=== PATIENT | female | born 1950 | race African-American/Black ===

== ENCOUNTER 2016-04-19 14:14 | Emergency (ER) | payer OTHER, MEDICAID ==
--- NOTE | 2016-04-19 15:16 | ED Physician Documentation ---
General Adult - HISTORIAN Historian: patient - HPI Stated Complaint: Facial Swelling Chief Complaint: General Adult Onset: hours (2 hours) Timing: still present Severity: mild Context: No precipitating factor noted. Quality: swelling to the left facial area. Location: left face Further Comments: yes (Had similar episode in Nov, no precipitating factor found at that time. No known precipitating factors this time either.) - ROS CONST: no problems EYES/ENT: denies: problems with vision, sore throat CVS/RESP: none. denies: shortness of breath, cough GI/: none NEURO/PSYCH: denies: headache, fainting - PAST HX Past History: none Other History: none Surgeries/Procedures: none Allergies/Adverse Reactions: Allergies Allergy/AdvReac Type Severity Reaction Status Date / Time celecoxib [From Celebrex] AdvReac Unknown Rash Verified 04/19/16 14:20 diclofenac sodium AdvReac Unknown Rash Verified 04/19/16 14:20 [From Voltaren] nabumetone [From Relafen] AdvReac Unknown Rash Verified 04/19/16 14:20 rofecoxib [From Vioxx] AdvReac Unknown Rash Verified 04/19/16 14:20 - SOCIAL HX Smoking History: non-smoker Alcohol Use: none Drug Use: none - FAMILY HX Family History: No - VITAL SIGNS Vital Signs: Vital Signs Temp Pulse Resp BP Pulse Ox 97.1 F L 68 18 203/95 97 04/19/16 14:15 04/19/16 14:15 04/19/16 14:15 04/19/16 14:15 04/19/16 14:15 General Adult Physical Exam - PHYSICAL EXAM GENERAL APPEARANCE: mild distress EENT: eye inspection normal, ENT inspection normal NECK: normal inspection, thyroid normal, supple RESPIRATORY: no resp distress, chest non-tender, breath sounds normal. No: wheezes, rales, rhonchi CVS: reg rate & rhythm, heart sounds normal, equal pulses SKIN: warm/dry, other (sweeling to the left cheek, upper and lower lip to the midline. ) NEURO: oriented X3, mood/affect nml, cognition normal Discharge Clincal Impression: Facial swelling Referrals: Seth Malone MD [Primary Care Provider] - 2 Days Additional Instructions: Take some Benadryl or Claritin as needed to help with the swelling. If you start to developing any shortness of breath. Condition: Stable Disposition: HOME, SELF-CARE Decision to Admit: NO Date of Decison to Admit: 04/19/16 Decision Time: 15:20
[2016-04-19] MEDS ORDERED: methylPREDNISolone SOD SUCC 125 MG/2 ML VIAL IVP ONE (15:18)
[2016-04-19] MEDS ORDERED: methylPREDNISolone ACETATE 80 MG/ML VIAL IM ONE (15:28)
[2016-04-19 15:33] VITALS: BP 180/58
== END 2016-04-19 15:32 | disposition home or self-care (01) ==
LOC: ED 14:14
DX: R22.0 Localized swelling, mass and lump, head (principal)
CPT/HCPCS: 99282; J1040

== ENCOUNTER 2016-06-23 11:38 | Outpatient (CLI) | payer OTHER, MEDICAID ==
--- NOTE | 2016-06-23 14:23 | Diagnostic Imaging Report ---
[facility] [address] [facility].[address] [address] Report Submission Date: Jun 23, 2016 2:15:50 PM CDT Patient Study Name: MALINA RAO Date: Jun 23, 2016 11:43:46 AM CDT Modality Type: CR Gender: F Description: CHEST : 48 Institution: [facility] Physician RAHAT FARLEY - OP Chest -two views CLINICAL HISTORY: Follow-up pulmonary nodule. FINDINGS: Examination of the chest in PA and lateral views with no prior film for comparison demonstrates lungs to be free of coalescent infiltrate. There is no evident pulmonary nodule on this examination. Cardiac silhouette is within normal limits and the aorta is atherosclerotic and tortuous. Degenerative changes and scoliosis are present in the thoracic vertebrae. IMPRESSION: Thoracic scoliosis. Aortic atherosclerosis. No evident pulmonary nodule on the current examination. Recommend comparison with the patient's prior study. Electronically signed on Jun 23, 2016 2:15:50 PM CDT by: Jose LOPEZ
--- NOTE | 2016-06-23 17:21 | Diagnostic Imaging Report ---
[facility] [address] [facility].[address] [address] Report Submission Date: Jun 23, 2016 5:07:15 PM CDT Patient Study Name: MALINA RAO Date: Jun 23, 2016 11:54:46 AM CDT Modality Type: US Gender: F Description: US THYROID SOFT TISS HEAD/NCK : 48 Institution: [facility] Physician: RAHAT FARLEY - OP Ultrasound thyroid Clinical history thyroid nodule Technique: Ultrasound of the was performed of the thyroid gland with recording images Findings: The right lobe measures 4.9 x 2 x 2.5 cm. Left lobe measures 4.9 x 2.5 x 2.2 cm. In the right lobe of the thyroid gland there is a cystic nodule and measuring 3.2 x 2.2 x 2.4 cm. In the thyroid isthmus there is a nearly isoechoic nodule measuring 1.4 x 1.5 x 1.3 cm. New. The left lobe of the thyroid gland contains a 2.7 x 2.2 x 2.2 cm nodule with cystic spaces within the nodule the of the Impression: Bilateral large cystic nodules in both lobes of the thyroid gland Solid nodule in the right thyroid isthmus as described above Electronically signed on Jun 23, 2016 5:07:15 PM CDT by: Osmar LOPEZ
== END 2016-06-23 11:40 ==
LOC: RAD 11:38
PROVIDERS: ATTEND Family Medicine
DX: R91.1 Solitary pulmonary nodule (principal); E04.1 Nontoxic single thyroid nodule
CPT/HCPCS: 71020; 76536

== ENCOUNTER 2016-07-02 14:08 | Emergency (ER) | payer OTHER, MEDICAID ==
[2016-07-02] MEDS ORDERED: diphenhydrAMINE HCL 50 MG/ML VIAL IM ONE (14:28)
[2016-07-02] MEDS ORDERED: methylPREDNISolone ACETATE 80 MG/ML VIAL IM ONE (14:29)
--- NOTE | 2016-07-02 14:50 | ED Physician Documentation ---
General Adult - HISTORIAN Historian: patient - HPI Stated Complaint: face/lip swelling Chief Complaint: General Adult Further Comments: yes (66 year old female patient presents with right side facial edema and upper lip edema. Patient states she took 4 benadryl at 0600 and 1 benadrly around noon with no improvement. Patient has been seen in the Er twice for similar episodes. Both episodes occureed after patient was using cleaning products. Patient states symptoms have improved after antihistamines in the past. Today patient states she cleaned with rug with lysol and the floor with bleach last night.) - ROS CONST: no problems EYES/ENT: none CVS/RESP: none GI/: none MS/SKIN/LYMPH: none NEURO/PSYCH: denies: headache - PAST HX Past History: none Other History: none Surgeries/Procedures: none Allergies/Adverse Reactions: Allergies Allergy/AdvReac Type Severity Reaction Status Date / Time celecoxib [From Celebrex] AdvReac Unknown Rash Verified 07/02/16 14:27 diclofenac sodium AdvReac Unknown Rash Verified 07/02/16 14:27 [From Voltaren] nabumetone [From Relafen] AdvReac Unknown Rash Verified 07/02/16 14:27 rofecoxib [From Vioxx] AdvReac Unknown Rash Verified 07/02/16 14:27 Home Medications: Ambulatory Orders Medication Instructions Recorded Citalopram Hydrobromide [Celexa] 1 tab PO QDAY 07/02/16 Loratadine [Vicks Qlearquil 10 mg PO DAILY #30 tablet 07/02/16 Allergy] - SOCIAL HX Smoking History: non-smoker - FAMILY HX Family History: No - VITAL SIGNS Vital Signs: Vital Signs Temp Pulse Resp BP Pulse Ox 67 18 164/92 94 07/02/16 14:15 07/02/16 14:15 07/02/16 14:15 07/02/16 14:15 - REVIEWED ASSESSMENTS Nursing Assessment Reviewed: Yes Vitals Reviewed: Yes Progress - Progress Progress: Medicated with depomedrol 80 mg in the Er and benadryl 25mg IM Reviewed discharge instructions. Reviewed medication list. Reviewed symptoms to return to Er for. ED Results Lab/Radiology - Orders Orders: ED Orders Category Date Time Status diphenhydrAMINE HCL [Benadryl] Med 07/02/16 14:28 Once 25 mg IM NOW ONE methylPREDNISolone ACETATE [Depo-Medrol] Med 07/02/16 14:29 Once 80 mg IM NOW ONE General Adult Physical Exam - PHYSICAL EXAM GENERAL APPEARANCE: mild distress EENT: eye inspection normal, WINDY, other (Significant right facial edema and upper lip edema, no dental caries) CVS: reg rate & rhythm, heart sounds normal, equal pulses, no murmur, no gallop , PMI nml, no JVD, no friction rub, 24 ABDOMEN: soft, no organomegaly, normal bowel sounds, no abdominal bruit, no distension SKIN: normal color, warm/dry, NR, INT, PAL, DR EXTREMITIES: non-tender, normal range of motion, no evidence of injury, no edema , J, 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 NEURO: oriented X3, CN's nml as tested, motor nml, sensation nml, mood/affect nml Discharge Clincal Impression: Facial swelling Allergic contact dermatitis Qualifiers: Contact dermatitis trigger: unspecified trigger Qualified Code(s): L23.9 - Allergic contact dermatitis, unspecified cause Prescriptions: Loratadine [Vicks Qlearquil Allergy] 10 mg PO DAILY #30 tablet Referrals: Seth Malone MD [Primary Care Provider] - 2 Days Home Medications: Ambulatory Orders Citalopram Hydrobromide [Celexa] 1 tab PO QDAY 07/02/16 Loratadine [Vicks Qlearquil Allergy] 10 mg PO DAILY #30 tablet 07/02/16 Condition: Stable Disposition: 01 HOME, SELF-CARE Decision to Admit: NO Decision Time: 14:50
[2016-07-02 15:01] VITALS: BP 158/92
== END 2016-07-02 14:50 | disposition home or self-care (01) ==
LOC: ED 14:08
DX: L23.9 Allergic contact dermatitis, unspecified cause (principal)
CPT/HCPCS: J1040; J1200; 96372; 99283

== ENCOUNTER 2016-07-30 14:36 | Outpatient (CLI) | payer OTHER, MEDICAID ==
--- NOTE | 2016-07-31 10:34 | OP Clinic Progress Note ---
REASON FOR VISIT: This 66-year-old lady is seen with an enlarged thyroid. She was seen at a general health screening visit. There is no known family history of thyroid disease. She denies problems with swallowing. She denies problems with hoarseness. Some degree of swelling in the anterior aspect of her neck was more of an incidental finding found more by Dr. Malone by the patient's history. The patient felt that her neck was just somewhat fat and that was part of it. It is not tender also. A thyroid ultrasound was appropriately ordered. It does note generally cystic masses in the neck from about 1.5 cm to a little over 3 cm with several of these. Part of the body of the report states there is a cystic nodule in the right lobe and also states further down in the impression there is a solid nodule in the right thyroid isthmus. PLAN: I went over choices and options with the patient. I am not able to find any thyroid function tests and asked her to get some lab work to be drawn with a T3 , T4, TSH, thyroglobulin, and thyroid peroxidase test. She will also get a thyroid nuclear medicine scan and uptake. After these are done, I will review this. I also mentioned that in the more somewhat isoechoic or solid nodule in the right thyroid isthmus, it might be aspirated. If you are aspirating them, the cystic changes might be aspirated also, but this will be discussed with the patient after the above studies have been obtained. cc: Dr. Seth LOPEZ
== END 2016-07-30 14:37 ==
LOC: ENT 14:36
PROVIDERS: ATTEND Otolaryngology
DX: E04.9 Nontoxic goiter, unspecified (principal)
CPT/HCPCS: G0463

== ENCOUNTER 2016-07-31 14:59 | Outpatient (CLI) | payer OTHER, MEDICAID ==
[2016-08-01 04:35] LABS: THYROGLOBULIN 77.3 ng/mL (1.6-60.0)
== END 2016-07-31 15:00 ==
LOC: LAB 14:59
PROVIDERS: ATTEND Otolaryngology
DX: E04.2 Nontoxic multinodular goiter (principal)
CPT/HCPCS: 36415; 84432; 84439; 84443; 84481; 86376

== ENCOUNTER 2016-08-20 11:58 | Outpatient (CLI) | payer OTHER ==
--- NOTE | 2016-08-21 12:42 | OP Clinic Progress Note ---
REASON FOR VISIT: Alicia is seen in follow up for workup of her thyroid. She has a cold nodule on the right side and this was confirmed also with the thyroid nuclear medicine scan and also thyroid function tests including a peroxidase test, which helps to evaluate whether there is thyroiditis or not. All have come back in the normal range. These have been reviewed with Alicia. PLAN: I discussed with her the option of simply getting a repeat ultrasound regarding the cold nodule or having a fine-needle aspirate as guided by an ultrasound. She has opted to have the fine-needle aspirate guided by an ultrasound. I also explained to her 2 times to be sure she is clear that the aspirate gives a general ideal about the potential for malignancy and is not a certainty. In general, it is a high, medium, or low probability of being malignant and even these estimates are not always correct. She acknowledges that she understands this and but would like to have the fine-needle aspirate and arrangements are being made in that regard. cc: Dr. Seth LOPEZ
== END 2016-08-20 12:00 ==
LOC: ENT 11:58
PROVIDERS: ATTEND Otolaryngology
DX: E04.1 Nontoxic single thyroid nodule (principal)
CPT/HCPCS: G0463

== ENCOUNTER 2016-09-03 15:50 | Outpatient (CLI) | payer OTHER, MEDICAID ==
--- NOTE | 2016-09-04 09:20 | OP Clinic Progress Note ---
REASON FOR VISIT: Alicia is seen in follow up for an issue regarding her thyroid. She had nodules in the thyroid. The somewhat more suspicious one would be right sided, somewhat solid, and cold nodule. She has had fine-needle aspirate of that. I reviewed the pathology of that report with her being consistent with a benign follicular nodule. It does not have particular atypia cells. I also reviewed the general categories of implied risks of malignancy and recommendations and clinical management. This would be to have clinical follow up for it and the option of also having a repeat ultrasound. She brings up the concern regarding some of the other small nodules within the thyroid. PLAN: I again pointed out that it is somewhat recommended as a general guideline but not an absolute rule to have more clinical follow up. I offered having an ultrasound in 6 months to a year. Several times it is brought up and I have given her plenty of time as she appeared to be thinking. She wanted to know about having portions of the thyroid removed. She is very concerned regarding still the generally low possibility of them being malignant. I reviewed the pathology report and the general management protocol. It is not an absolute rule but acknowledged acceptable guidelines. The patient, again, has asked to be considered for surgery. I went over relative risks, problems, and complications, scar, infection, and vocal cord paralysis. I pointed out the vocal cord nerve, as the recurrent laryngeal nerve and calcium balance glands are being at risk, in addition to other surgical potential risks including infection, bleeding, airway blockage, scar, keloid formation, and she does have keloids in her neck. Patient asked again regarding surgery and I asked her to take some time. I asked her to come back in a month. I asked her to re-discuss these issues if she chose to with Dr. Malone or another surgeon for a different or additional opinion. The patient has chosen to come back in a month and review all these issues. cc: Dr. Seth LOPEZ
== END 2016-09-03 15:52 ==
LOC: ENT 15:50
PROVIDERS: ATTEND Otolaryngology
DX: E04.1 Nontoxic single thyroid nodule (principal)
CPT/HCPCS: G0463

== ENCOUNTER 2016-10-01 13:38 | Outpatient (CLI) | payer OTHER, MEDICAID ==
[2016-10-01 14:56] LABS: BASOPHILS % 0.3 (0.0-1.5); MEAN CORPUSCULAR HEMOGLOBIN 30.4 pg (28.0-34.0); MEAN CORPUSCULAR VOLUME 92.7 fl (80.0-100.0); MONOCYTES % 5.1 % (0.0-11.0); NEUTROPHILS # 5.2 # k/uL (1.4-7.7)
[2016-10-02 03:41] LABS: TOTAL PROTEIN 6.8 g/dL (6.0-8.5)
--- NOTE | 2016-10-07 11:44 | OP Clinic Progress Note ---
REASON FOR VISIT: This 66-year-old female has come in on her own accord to discuss her desire for possible thyroid surgery. At a prior meeting, I had gone over with her the prior fine-needle aspirate done fairly recently as being highly probable benign with a very low probability of being malignant. She has cystic nodules and more of a goitrous-type of picture. She had the solid nodule that was identified and she had the fine-needle aspirate ultrasound guided. I reviewed that with her again with the generally high probability of this being benign. She does have some dysphagia. She comes in today requesting to have surgery and have that removed. I went over what surgery is like and that I certainly would not recommend a total thyroidectomy for her condition. It would be possible to do a right thyroid lobectomy. Her thyroid palpably is multi-lobulated. I think it would be difficult to simply "take out the lump." There is a possibility it might present itself that way at the time of surgery but the higher probability would be that a right thyroid lobectomy would be needed to really effectively take out the nodule and associated disease. The complications I had gone over before and I reviewed with permanent problems with low calcium and hypocalcemia , parathyroid problems, permanent hoarseness, vocal cord paralysis and problems swallowing and talking. The patient does state that she remembers going over these issues and appreciates going over those issues again today. PLAN: I suggested waiting and repeat the fine-needle aspirate in about 6 months would be my choice. The patient impressed again considering having surgery. It was suggested that maybe additional information would be more reasonable as opposed to just having surgery currently. I have suggested an MRI with contrast to visualize the neck additionally. The patient is amenable to this at this point in time. cc: Dr. Seth LOPEZ
== END 2016-10-01 13:40 ==
LOC: ENT 13:38
PROVIDERS: ATTEND Otolaryngology
DX: E04.1 Nontoxic single thyroid nodule (principal); R13.10 Dysphagia, unspecified
CPT/HCPCS: 36415; 80053; 85025; G0463

== ENCOUNTER 2016-10-05 08:38 | Outpatient (CLI) | payer OTHER, MEDICAID ==
--- NOTE | 2016-10-06 17:48 | Diagnostic Imaging Report ---
[facility] [address] [facility] [place], [place]. [address] Report Submission Date: Oct 06, 2016 5:14:07 PM CDT Patient Study Name: MALINA RAO Date: Oct 05, 2016 9:22:01 AM CDT Modality Type: MR Gender: F Description: MRA NECK W&W/O CONTRAST : 48 Institution: [facility] Physician: ISSAC SUAREZ Magnetic resonance imaging of the neck without and with contrast History: Followup thyroid nodules Findings: Multiplanar magnetic resonance imaging of the neck performed without and with 15 mL intravenous omniscan. Comparison is made with the June 23, 2016 ultrasound exam. A predominantly cystic right thyroid nodule measures 2.3 x 2.7 x 3.4 cm without significant change. The left thyroid lobe is diffusely heterogeneous and likely contains multiple nodules. This is not the appropriate modality for followup of thyroid nodules. Moderately though convex thoracic scoliosis present. The parotid and submandibular glands are unremarkable. The normal-sized cervical lymph nodes are present. Impression: 1. Bilateral thyroid nodules as previously observed. This is not the appropriate modality for followup or characterization of thyroid nodules. This should be performed with sonography and ultrasound guided final aspiration biopsy if appropriate. 2. Thoracic scoliosis. Electronically signed on Oct 06, 2016 5:14:07 PM CDT by: Anthony LOPEZ
== END 2016-10-05 08:40 ==
LOC: RAD 08:38
PROVIDERS: ATTEND Otolaryngology
DX: E07.9 Disorder of thyroid, unspecified (principal)
CPT/HCPCS: 70543

== ENCOUNTER 2016-10-08 15:22 | Outpatient (CLI) | payer OTHER ==
--- NOTE | 2016-10-09 12:54 | OP Clinic Progress Note ---
REASON FOR VISIT: Alicia is seen in sequential follow up in evaluation of the thyroid. She has small cystic changes on her left thyroid and moderately large size right thyroid lobe nodule. The patient has considered wanting to have this excised with a right thyroid lobectomy that I have described at previous visits. I asked her to bring any additional family members along. My general impression would be to not have it operated on, but rather to have it followed up with an ultrasound or ultrasound guided fine-needle aspirates. The initial fine-needle aspirate has a very extremely high probability of being benign. It is not suspicious for being malignant and that information has been shared with the patient. Each time, the patient has expressed some interest in having to have surgery and have this cystic nodular portion of the thyroid removed with a right-sided thyroid lobectomy. Fortunately, she brought her daughter today. I reviewed the prior findings on her MRI of the neck and these findings were pointed out that there is no gross cervical lymphadenopathy. There is better delineation of the thyroid mass with the MRI. Again, reviewing all these issues with both the patient and with her daughter today, she was able to make the decision to wait and simply have an ultrasound in about 6 months, as a repeat study. She has a better understanding that with a thyroid lobectomy, although a small chance, there is some chance that she would need to be on Synthroid supplement ongoing in the future. She understands the general guidelines would be that the thyroid ultrasound in the future would be the better choice. She understands it is still not a guarantee that there would not be malignancy there. PLAN: The plan is to have a follow-up ultrasound in approximately 6 months. cc: Dr. Seth LOPEZ
== END 2016-10-08 15:23 ==
LOC: ENT 15:22
PROVIDERS: ATTEND Otolaryngology
DX: E04.1 Nontoxic single thyroid nodule (principal)
CPT/HCPCS: G0463

== ENCOUNTER 2016-10-10 13:18 | Outpatient (CLI) | payer OTHER | END 2016-10-10 13:20 | LOC: POD 13:18 | PROVIDERS: ATTEND Podiatrist | DX: B35.1 Tinea unguium (principal); M79.674 Pain in right toe(s); M79.675 Pain in left toe(s) | CPT/HCPCS: 11721; G0463 ==

== ENCOUNTER 2016-11-17 21:47 | Emergency (ER) | payer OTHER ==
--- NOTE | 2016-11-17 22:07 | ED Physician Documentation ---
Fall - HISTORIAN Historian: patient, paramedics - [facility] Chief Complaint: Fall Additional Information: tripped on curb fell w/pain lo back robin rt side Onset: today, hours (1500) Where: park Context: tripped, lost balance r: moderate Associated Symptoms:: no loss of consciousness Location of Pain/Injury: denies: head, neck, face, chest Injury to Right Extremity: none Injury to Left Extremity: none Further Comments: yes (dis abled dt djd) - ROS CONST: no problems NEURO: denies: dizziness, anxiety, depression MS/SKIN/LYMPH: back pain. denies: weakness, numbness, neck pain, ankle swelling , leg swelling CVS/RESP: none. denies: chest pain, shortness of breath - PAST HX Past History: other (htn djd) Allergies/Adverse Reactions: Allergies Allergy/AdvReac Type Severity Reaction Status Date / Time celecoxib [From Celebrex] AdvReac Unknown Rash Verified 11/17/16 21:57 diclofenac sodium AdvReac Unknown Rash Verified 11/17/16 21:57 [From Voltaren] nabumetone [From Relafen] AdvReac Unknown Rash Verified 11/17/16 21:57 rofecoxib [From Vioxx] AdvReac Unknown Rash Verified 11/17/16 21:57 - SOCIAL HX Smoking History: non-smoker Alcohol Use: occasionally Drug Use: none - FAMILY HX Family History: no significant history - VITAL SIGNS Vital Signs: Vital Signs Temp Pulse Resp BP Pulse Ox 158/92 07/02/16 14:50 - REVIEWED ASSESSMENTS Nursing Assessment Reviewed: Yes Vitals Reviewed: Yes ED Results Lab/Radiology - Radiology Radiology Impressions: xray low back no apparent new fracture-advanced djd - Orders Orders: ED Orders Category Date Time Status LUMBAR SPINE WITH OBLIQUES [L SPINE 4 VIEWS] [RAD] Stat Exams 11/17/16 Ordered Fall Physical Exam - Physical Exam General Appearance: moderate distress Head: non-tender, no swelling, no obvious injury Neck: non-tender, painless ROM Eye: WINDY, EOMI Resp/CVS: chest non-tender, no ecchymosis, breath sounds nml (has kelopid upper chest dt burn) Abdomen: soft, non-tender Neuro: oriented x3, CN's nml as tested, sensation nml Skin: color nml, no rash. No: cyanosis, diaphoresis, pallor Back: CVA tenderness (R), CVA tenderness (L) (lumbar pos slr approx 30 deg) Extremities: atraumatic Joint: No: joints nml, nml ROM - Viktoria Coma Score Eyes Open: Spontaneous Speech: Oriented Motor: Obeys Commands Discharge Referrals: Seth Malone MD [Primary Care Provider] - 2 Days
[2016-11-17 23:12] VITALS: BP 163/81
--- NOTE | 2016-11-18 06:42 | Diagnostic Imaging Report ---
ROSENDA GUIDRY [facility] [address] [facility] [address] [address] Report Submission Date: Nov 17, 2016 10:47:36 PM CDT Patient Study Name: MALINA RAO Date: Nov 17, 2016 10:11:09 PM CDT Modality Type: CR Gender: F Description: SPINE : 48 Institution: [facility] Physician: ROSENDA GUIDRY Lumbar spine - five views Clinical history: Fall. Lower right back pain. Findings: Complete examination lumbar spine including oblique and lateral coned -down views demonstrates degenerative anterolisthesis at L4-5 measuring 6 mm and L5-S1 measuring 6 mm. There is mild levoscoliosis with apex at T12-L1. The pedicles are intact and the paravertebral soft tissues are within normal limits. There is mild compression of the superior endplate of T12 that appears to be old. Degenerative facet changes are seen in the mid and lower lumbar vertebrae. Impression: 1. Spondylosis and levoscoliosis. 2. Degenerative anterolisthesis at L4-5 and L5-S1. 3. Compression fracture superior endplate of T12 that appears old. Electronically signed on Nov 17, 2016 10:47:36 PM CDT by: Jose LOPEZ
== END 2016-11-17 23:11 | disposition home or self-care (01) ==
LOC: ED 21:47
DX: M54.9 Dorsalgia, unspecified (principal); W19.XXXA Unspecified fall, initial encounter; Y93.9 Activity, unspecified; Y99.9 Unspecified external cause status
CPT/HCPCS: 72110; 99284

== ENCOUNTER 2017-01-06 11:26 | Outpatient (CLI) | payer OTHER ==
--- NOTE | 2017-01-06 14:38 | Diagnostic Imaging Report ---
REYNA FERMIN [facility] [address] [facility] [address] [address] Report Submission Date: Jan 06, 2017 11:54:09 AM CDT Patient Study Name: MALINA RAO Date: Jan 06, 2017 11:30:24 AM CDT Modality Type: CR Gender: F Description: CHEST : 48 Institution: [facility] Physician: REYNA FERMIN Examination: Plain film ribs History: Injury Findings: 3 views of the ribs normal cortical margins. No fracture or dislocation. Impression: No rib abnormality. Electronically signed on Jan 06, 2017 11:54:09 AM CDT by: Sushant LOPEZ
== END 2017-01-06 11:27 ==
LOC: RAD 11:26
PROVIDERS: ATTEND Physician Assistant
DX: R07.81 Pleurodynia (principal)
CPT/HCPCS: 71100

== ENCOUNTER 2017-01-23 15:20 | Outpatient (CLI) | payer OTHER | END 2017-01-23 15:30 | LOC: POD 15:20 | PROVIDERS: ATTEND Podiatrist | DX: B35.1 Tinea unguium (principal); M79.674 Pain in right toe(s); M79.675 Pain in left toe(s) | CPT/HCPCS: 11721; G0463 ==

== ENCOUNTER → 2017-03-06 | Outpatient (CLI) | payer OTHER ==
--- NOTE | 2017-03-06 15:11 | Diagnostic Imaging Report ---
ISSAC SUAREZ [facility] [address] [facility] [address] 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 Comparison exams: 23 June 2016 Findings: Right thyroid lobe measures 4.2 x 1.9 x 2.8 cm. Left thyroid lobe measures 5.1 x 2.4 x 2.4 cm. Diffuse inhomogeneous echogenicity bilaterally. Isthmus measures 8.7 mm. Within the mid aspect of the right thyroid lobe is a complex solid cystic nodule measuring 2.6 x 2.0 x 3.0 cm. Solid appearing nodule within the left thyroid lobe measuring 2.4 x 2.3 x 2.3 cm. Impression: Goiterous infiltration. Persistent solid and solid/cystic nodules bilaterally - not significantly changed in appearance since the May 2016 examination. Correlate with any biopsy results if obtained. Electronically signed on Mar 06, 2017 10:23:17 AM TEMPLATE CUTTER by: Sushant LOPEZ
== END ==
LOC: RAD 09:34
PROVIDERS: ATTEND Otolaryngology
DX: R22.1 Localized swelling, mass and lump, neck (principal)
CPT/HCPCS: 76536

== ENCOUNTER 2017-03-11 14:52 | Outpatient (CLI) | payer OTHER ==
--- NOTE | 2017-03-12 11:42 | OP Clinic Progress Note ---
REASON FOR VISIT: Alicia still had some concerns about her thyroid and had 1 additional evaluation. The ultrasound was repeated. She does have nodules on both sides and a general appearance of the thyroid being goitrous. I reviewed these findings with her in addition to the general conclusion that there is no significant change. She also had a fairly benign fine-needle aspirate cytology report. I reviewed these issues with her. She had given some thought to just wanting to have "it out." I pointed out if we took out both lobes of the thyroid when she has nodules on both sides that she would be thyroid medication- dependent the rest of her life. Also, there would be a low, but not zero probability, of there being malignancy. PLAN: Understanding her risks and options as best as I could explain to her, she acknowledged that she felt that she could understand it well. She opted to have a follow up ultrasound in about 10 months. I will try to make arrangements in that regard next fall. cc: Dr. Seth LOPEZ
== END 2017-03-11 15:00 ==
LOC: ENT 14:52
PROVIDERS: ATTEND Otolaryngology
DX: E04.9 Nontoxic goiter, unspecified (principal)
CPT/HCPCS: G0463

== ENCOUNTER 2017-03-14 17:33 | Emergency (ER) | payer OTHER ==
--- NOTE | 2017-03-14 17:47 | ED Physician Documentation ---
General Adult - HISTORIAN Historian: patient - HPI Stated Complaint: fall, L wrist pain Chief Complaint: General Adult Onset: minutes Timing: still present Severity: moderate Further Comments: yes (Pt is a 67 yo woman who tripped and fell and injured her L wrist.) - ROS CONST: no problems EYES/ENT: none CVS/RESP: none MS/SKIN/LYMPH: other (L wrist injury) - PAST HX Past History: other (Depression, GERD, HTN) Surgeries/Procedures: , other (ortho surgery) Allergies/Adverse Reactions: Allergies Allergy/AdvReac Type Severity Reaction Status Date / Time celecoxib [From Celebrex] AdvReac Unknown Rash Verified 03/14/17 17:42 diclofenac sodium AdvReac Unknown Rash Verified 03/14/17 17:42 [From Voltaren] nabumetone [From Relafen] AdvReac Unknown Rash Verified 03/14/17 17:42 rofecoxib [From Vioxx] AdvReac Unknown Rash Verified 03/14/17 17:42 - SOCIAL HX Smoking History: non-smoker Alcohol Use: heavy - FAMILY HX Family History: No - VITAL SIGNS Vital Signs: Vital Signs Temp Pulse Resp BP Pulse Ox 163/81 11/17/16 23:11 - REVIEWED ASSESSMENTS Nursing Assessment Reviewed: Yes Vitals Reviewed: Yes Progress - Progress Progress: Percocet (5/325) 2 tabs po x 1. x-ray L wrist: 3 views the wrist demonstrates diffuse osteopenia. Impaction fracture involving the distal radius with likely intra-articular extension. Comminuted fragments. Ulna is intact. Extensive carpal degenerative changes. d/w Dr. Hickey, [facility] splint Pt july/u Thursday. Ortho clinic to call pt. Rx Percocet (5/325) 1-2 po q 4-6 hrs prn # 15. plus 4 tabs-->home. D/c instructions: Rx Percocet (5/325). Take 1 or 2 every 4 to 6 hrs as needed for moderate to severe pain. [facility] with call you on Thursday to set up an appointment early in the week. If you do not hear from them by noon on Thursday, please call them at Tel. [phone]. General Adult Physical Exam - PHYSICAL EXAM GENERAL APPEARANCE: moderate distress NECK: normal inspection, supple RESPIRATORY: no resp distress, chest non-tender, breath sounds normal CVS: reg rate & rhythm, heart sounds normal BACK: normal inspection, no CVA tenderness SKIN: warm/dry, normal color EXTREMITIES: other (L wrist deformity) NEURO: oriented X3, motor nml Discharge Clincal Impression: Left wrist fracture Qualifiers: Encounter type: initial encounter Fracture type: closed Qualified Code(s): S62.102A - Fracture of unspecified carpal bone, left wrist, initial encounter for closed fracture Referrals: Seth Malone MD [Primary Care Provider] - Condition: Stable Decision to Admit: NO Decision Time: 19:12
[2017-03-14] MEDS ORDERED: oxyCODONE/ACETAMINOPHEN 5/325 TABLET PO ONE ×2 (17:54→19:08)
--- NOTE | 2017-03-14 19:13 | Diagnostic Imaging Report ---
GENARO MANTILLA [facility] [address] Formerly [facility], [facility]–[address] [address] Report Submission Date: Mar 14, 2017 6:47:08 PM LUMBER STICKER Patient Study Name: MALINA RAO Date: Mar 14, 2017 6:30:19 PM LUMBER STICKER Modality Type: CR Gender: F Description: UPPER EXTREMITY : 48 Institution: [facility] Physician: GENARO MANTILLA Examination: Plain film wrist History: Injury Comparison exams: None available Findings: 3 views the wrist demonstrates diffuse osteopenia. Impaction fracture involving the distal radius with likely intra-articular extension. Comminuted fragments. Ulna is intact. Extensive carpal degenerative changes. Impression: Impacted/comminuted distal radial fracture. Osteopenia and degenerative changes. Electronically signed on Mar 14, 2017 6:47:08 PM LUMBER STICKER by: Sushant LOPEZ
[2017-03-14 19:51] VITALS: BP 154/72
== END 2017-03-14 19:33 | disposition home or self-care (01) ==
LOC: ED 17:33
DX: S62.102A Fracture of unspecified carpal bone, left wrist, initial encounter for closed fracture (principal); W19.XXXA Unspecified fall, initial encounter; Y92.9 Unspecified place or not applicable; Y93.9 Activity, unspecified
CPT/HCPCS: 73130; 99283; A9270

== ENCOUNTER 2017-05-08 15:07 | Outpatient (CLI) | payer OTHER | END 2017-05-08 15:10 | LOC: POD 15:07 | PROVIDERS: ATTEND Podiatrist | DX: B35.1 Tinea unguium (principal); M79.674 Pain in right toe(s); M79.675 Pain in left toe(s) | CPT/HCPCS: 11721; G0463 ==

== ENCOUNTER 2017-07-20 14:42 | Outpatient (CLI) | payer OTHER ==
[2017-07-20 15:19] LABS: eGFR (Non-African) > 60
== END 2017-07-20 14:44 ==
LOC: LAB 14:42
PROVIDERS: ATTEND Family Medicine
DX: I10 Essential (primary) hypertension (principal); E78.00 Pure hypercholesterolemia, unspecified
CPT/HCPCS: 36415; 80048; 80061

== ENCOUNTER 2017-08-11 10:05 | Outpatient (CLI) | payer OTHER | END 2017-08-11 10:06 | LOC: CARD 10:05 | PROVIDERS: ATTEND Internal Medicine Cardiovascular Disease | DX: R07.9 Chest pain, unspecified (principal); I10 Essential (primary) hypertension; E78.00 Pure hypercholesterolemia, unspecified; E66.9 Obesity, unspecified | CPT/HCPCS: G0463 ==

== ENCOUNTER 2017-09-22 14:14 | Outpatient (CLI) | payer OTHER | END 2017-09-22 14:15 | LOC: CARD 14:14 | PROVIDERS: ATTEND Internal Medicine Cardiovascular Disease | DX: R07.9 Chest pain, unspecified (principal); I10 Essential (primary) hypertension; E78.5 Hyperlipidemia, unspecified; E66.9 Obesity, unspecified | CPT/HCPCS: G0463 ==

== ENCOUNTER 2017-10-09 15:15 | Outpatient (CLI) | payer OTHER | END 2017-10-09 15:20 | LOC: POD 15:15 | PROVIDERS: ATTEND Podiatrist | DX: B35.1 Tinea unguium (principal); M79.674 Pain in right toe(s); M79.675 Pain in left toe(s) | CPT/HCPCS: 11721; G0463 ==

== ENCOUNTER 2017-11-24 12:55 | Outpatient (CLI) | payer OTHER | END 2017-11-24 12:56 | LOC: CARD 12:55 | PROVIDERS: ATTEND Internal Medicine Cardiovascular Disease | DX: R07.9 Chest pain, unspecified (principal); I10 Essential (primary) hypertension; E78.5 Hyperlipidemia, unspecified; E66.9 Obesity, unspecified | CPT/HCPCS: G0463 ==

== ENCOUNTER 2017-12-14 16:13 | Outpatient (CLI) | payer MEDICAID, OTHER ==
[2017-12-14 18:20] LABS: eGFR (Non-African) > 60
[2017-12-14 23:41] LABS: BASO % 0.4 % (0.0-1.5); EOS % 6.2 % (0.0-6.8); LYMPH ABS # 1.52 thou/uL (0.60-4.00); MONOCYTE % 6.4 % (0.0-11.0); MONOCYTE ABS # 0.26 thou/uL (0.00-0.90); PLATELET COUNT 232 thou/uL (130-400)
== END 2017-12-14 16:20 ==
LOC: LAB 16:13
PROVIDERS: ATTEND Family Medicine
DX: E78.00 Pure hypercholesterolemia, unspecified (principal); I10 Essential (primary) hypertension
CPT/HCPCS: 36415; 80053; 80061; 85025

== ENCOUNTER 2017-12-24 14:18 | Outpatient (CLI) | payer OTHER | END 2017-12-24 14:20 | LOC: RAD 14:18 | PROVIDERS: ATTEND Otolaryngology | DX: R22.1 Localized swelling, mass and lump, neck (principal) | CPT/HCPCS: 76536 ==

== ENCOUNTER 2018-01-20 14:27 | Outpatient (CLI) | payer OTHER ==
--- NOTE | 2018-01-21 12:02 | OP Clinic Progress Note ---
REASON FOR VISIT: This 67-year-old female has been followed with cystic masses in her thyroid. She had a fine needle aspirate in August 2016 with no suspicious cells noted. She has had an ultrasound and estimated dimensions have altered some but there is not a gross increase in size. The patient adamantly refuses any additional fine needle aspirates of the thyroid. She feels like the neck symptoms have not changed. I do not feel there is a dramatic change in the size of the thyroid. I do not feel gross cervical lymphadenopathy. PLAN: Patient has chosen to have an ultrasound again in about 6 months and if things stay about the same, the interval between ultrasounds might be of a longer duration. cc: Dr. Seth LOPEZ
== END 2018-01-20 14:33 | disposition home or self-care (01) ==
LOC: ENT 14:27
PROVIDERS: ATTEND Otolaryngology
DX: E04.1 Nontoxic single thyroid nodule (principal)
CPT/HCPCS: G0463

== ENCOUNTER 2018-02-20 12:29 | Emergency (ER) | payer OTHER ==
[2018-02-20] MEDS ORDERED: ORPHENADRINE CITRATE 60 MG/2 ML ML IM ONE (13:12)
[2018-02-20] MEDS ORDERED: KETOROLAC TROMETHAMINE 60 MG/2 ML VIAL IM ONE (13:13)
--- NOTE | 2018-02-20 13:36 | ED Physician Documentation ---
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 Pt presents to the ED via POV c/o neck/upper back pain/ soreness x 2 weeks after sweeping snow off car. pt reports mild intermittent Right arm pain. movement increases the pain. Hot water in shower relieves the pain. pt has tried foster care case manager and icy hot for pain with mild improvement. Pt has an Rx for tramadol which she took this morning with partial relief. Pt reports her pharmacy is supposed to deliver tizanidine 4 mg today that was previously prescribed. pt denies current chest pain, dyspnea, syncope/near syncope, headache, dizziness, visual disturbances, n/v/d, fever/chills, rash, sick contacts, dysuria, trauma. melena or hematochezia, bleeding or easy bruising, change in bowel or bladder function. anxiety or depression. ROS Negative unless otherwise specified. - ROS NEURO/PSYCH: denies: difficulty with speech, anxiety, depression EYES/ENT: denies: sore throat CVS/RESP: denies: chest pain, shortness of breath, palpitations, cough CONST: denies: recent illness GI/: denies: nausea, vomiting, problems urinating - PAST HX Past History: arthritis Cardiac Risk Factors: hypertension, other (GERD DEPRESSION ARTHRITIS) Surgeries/Procedures: other (Left wrist. Bilateral Knees) Allergies/Adverse Reactions: Allergies Allergy/AdvReac Type Severity Reaction Status Date / Time celecoxib [From Celebrex] AdvReac Unknown Rash Verified 02/20/18 12:49 diclofenac sodium AdvReac Unknown Rash Verified 02/20/18 12:49 [From Voltaren] nabumetone [From Relafen] AdvReac Unknown Rash Verified 02/20/18 12:49 rofecoxib [From Vioxx] AdvReac Unknown Rash Verified 02/20/18 12:49 - SOCIAL HX Smoking History: non-smoker Alcohol Use: occasionally Drug Use: none - FAMILY HX Family History: none - VITAL SIGNS Vital Signs: Vital Signs Temp Pulse Resp BP Pulse Ox 98.1 F 66 14 126/82 97 02/20/18 12:30 02/20/18 12:30 02/20/18 12:30 02/20/18 12:30 02/20/18 12:30 - REVIEWED ASSESSMENT Nursing Assessment Reviewed: Yes Vitals Reviewed: Yes Progress - Progress Progress: Report Submission Date: Feb 20, 2018 2:15:32 PM DIRECTOR SOCIAL WELFARE Patient Study Name: MALINA RAO Date: Feb 20, 2018 1:30:07 PM DIRECTOR SOCIAL WELFARE Modality Type: DX Gender: F Description: SPINE : 48 Institution: [facility] Physician: [place] NICHOLS Three-view cervical spine Clinical history: Pain that is worse with movement for 1 week. Findings: Examination of the cervical spine in AP, lateral and open-mouth views demonstrates the vertebrae to be anatomically aligned. C5-6 and C6-7 disc spaces are narrowed with osteophyte formation consistent with degenerative disc disease. Prevertebral soft tissues are within normal limits. The C1-2 articulation is normal ndt the base of the odontoid is intact. Impression: 1. Spondylosis. 2. No fracture. Electronically signed on Feb 20, 2018 2:15:32 PM DIRECTOR SOCIAL WELFARE by: Jose Glaser [id number] pt reports pain improved after toradol and norflex. awaiting lab results. - EKG/XRAY/CT EKG: NSR (Rate 60QRS prime), RBBB, no ST T wave changes, unchanged from ([id number]) ED Results Lab/Radiology - Lab Results Lab Results: Lab Results 02/20/18 02/20/18 02/20/18 14:08 14:08 14:08 WBC 6.50 K/ul K/ul (4.00-12.00) RBC 4.24 M/ul M/ul (3.90-5.20) Hgb 12.7 g/dL g/dL (12.0-16.0) Hct 37.3 % % (34.5-46.5) MCV 88.0 fl fl (80.0-100.0) MCH 29.8 pg pg (28.0-34.0) MCHC 33.9 g/dL g/dL (30.0-36.0) RDW 12.2 % % (11.3-14.3) Plt Count 206 K/mm3 K/mm3 (130-400) Neut % (Auto) 66.0 % % (39.0-79.0) Lymph % (Auto) 22.3 % % (16.0-50.0) [place] % (Auto) 9.0 % % (0.0-11.0) Eos % (Auto) 2.3 % % (0.0-6.8) Baso % (Auto) 0.4 (0.0-1.5) Neut # (Auto) 4.3 # k/uL # k/uL (1.4-7.7) Lymph # (Auto) 1.5 # k/uL # k/uL (0.6-4.0) [place] # (Auto) 0.6 # k/uL # k/uL (0.0-0.9) Eos # (Auto) 0.2 # k/uL # k/uL (0.0-0.6) Baso # (Auto) 0.0 # k/uL # k/uL (0.0-0.5) Sodium 137 mmol/L mmol/L (136-145) Potassium 3.7 mmol/L mmol/L (3.5-5.1) Chloride 94 mmol/L L mmol/L (98-107) Carbon Dioxide 32 mmol/L H mmol/L (22-30) BUN 12 mg/dL mg/dL (7-17) Creatinine 0.60 mg/dL mg/dL (0.52-1.04) Estimated Creat Clear 137 Est GFR ( Amer) > 60 (60 - ) Est GFR (Non-Af Amer) > 60 (60 - ) Glucose 93 mg/dL mg/dL (74-106) Calcium 8.8 mg/dL mg/dL (8.4-10.2) Total Bilirubin 0.7 mg/dL mg/dL (0.2-1.3) AST 17 U/L U/L (15-46) ALT 27 U/L U/L (13-69) Alkaline Phosphatase 145 U/L H U/L (38-126) Troponin I 0.00 ng/mL L ng/mL (0.03-0.06) Total Protein 7.2 g/dL g/dL (6.3-8.2) Albumin 3.7 g/dL g/dL (3.5-5.0) - Orders Orders: ED Orders Category Date Time Status CERVICAL SPINE STANDARD VIEWS [C SPINE 2 OR 3 VIEWS] [ Exams 02/20/18 Completed RAD] Stat CBC/PLATELET/DIFF Stat Lab 02/20/18 14:08 Completed CMP Stat Lab 02/20/18 14:08 Completed TROPONIN I (cTnI) Stat Lab 02/20/18 14:08 Completed Ketorolac Tromethamine [Toradol] Med 02/20/18 13:13 Discontinued 60 mg IM NOW ONE Orphenadrine Citrate [Norflex] Med 02/20/18 13:12 Discontinued 60 mg IM NOW ONE EKG WITH COMPARISON Stat Ther 02/20/18 Ordered Neck Injury/Pain - Physical Exam General Appearance: no acute distress, alert EENT: nml ENT inspection, pharynx nml Neck: muscle spasm, other (vertebral column non tender. ) Nexus Criteria: Nexus criteria neg Back: muscle spasm (upper back) Respiratory: chest non-tender, breath sounds nml CVS: heart sounds nml, bilateral pulses nml Abdomen: non-tender, no organomegaly, nml bowel sounds, no distention Skin: warm/dry Extremities: non-tender Neuro/Psych: oriented x3, sensation nml, motor nml, mood/affect nml, ball warper tender nml Discharge Clincal Impression: Neck pain DJD (degenerative joint disease) of cervical spine Qualifiers: Spinal osteoarthritis complication: unspecified spinal osteoarthritis Qualified Code(s): M47.812 - Spondylosis without myelopathy or radiculopathy, cervical region Referrals: Seth Malone MD [Primary Care Provider] - 2 Days Additional Instructions: Use warm moist heat packs for 20 min intervals taking care not to burn skin. Follow up with primary care in 2 weeks if not improving as expected. Take your home tramadol and tizanidine for the pain. seek medical care immediately if difficult to wake, difficulty breathing, feeling faint or fainting, increased rash, chest pain, shortness of breath, fever not controlled by tylenol/motrin, or any concerns. PLEASE UNDERSTAND THAT THIS IS AN EMERGENCY EVALUATION FOR YOUR COMPLAINT AND BY NATURE IS LIMITED AND NOT A SUBSTITUTE FOR ONGOING MEDICAL CARE. EVEN THOUGH TEST RESULTS AND TREATMENT PLAN WERE EXPLAINED THERE MAY BE A NEED FOR ADDITIONAL TESTING TO FULLY DETERMINE THE EXTENT OF YOUR ILLNESS/INJURY/OR CONCERN SO YOU SHOULD CONTACT AND OR ESTABLISH WITH A PRIMARY CARE PROVIDER (OR REFERRAL DOCTOR IF APPLICABLE) FOR AN APPOINTMENT SOON POSSIBLE. Condition: Good Disposition: 01 HOME, SELF-CARE Decision to Admit: NO Date of Febison to Admit: 02/20/18 Decision Time: 14:40
[2018-02-20 14:25] LABS: BASOPHILS % 0.4 (0.0-1.5); EOSINOPHILS % 2.3 % (0.0-6.8); MEAN CORPUSCULAR HEMOGLOBIN 29.8 pg (28.0-34.0); NEUTROPHILS # 4.3 # k/uL (1.4-7.7)
--- NOTE | 2018-02-20 14:35 | Diagnostic Imaging Report ---
[place] NICHOLS [facility] [id number] [facility].[address] 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 Findings: Examination of the cervical spine in AP, lateral and open-mouth views demonstrates the vertebrae to be anatomically aligned. C5-6 and C6-7 disc spaces are narrowed with osteophyte formation consistent with degenerative disc disease. Prevertebral soft tissues are within normal limits. The C1-2 articulation is normal ndt the base of the odontoid is intact. Impression: 1. Spondylosis. 2. No fracture. Electronically signed on Feb 20, 2018 2:15:32 PM WHEEL LOADER OPERATOR by: Jose LOPEZ
[2018-02-20 14:45] LABS: eGFR (Non-African) > 60
[2018-02-20 17:22] VITALS: BP 122/78
== END 2018-02-20 14:55 | disposition home or self-care (01) ==
LOC: ED 12:29
DX: M54.2 Cervicalgia (principal); M47.812 Spondylosis without myelopathy or radiculopathy, cervical region
CPT/HCPCS: 36415; 72040; 80053; 84484; 85025; 93005; 96372; 99283; 99284; J1885; J2360

== ENCOUNTER 2018-11-10 13:14 | Outpatient (CLI) | payer OTHER ==
[2018-10-30 22:21] VITALS: BP 128/71
[~2018-11-10 13:14] MED LIST: BUPIVACAINE HCL 0.25% (2.5MG/ML) PF 10ML VIAL IV ONE; Lidocaine 1% 5ml 10 MG/ML VIAL ONE; methylPREDNISolone ACETATE 40 MG/ML VIAL IM ONE
--- NOTE | 2018-11-16 15:52 | CONSULTATION REPORT ---
DRAFT CHIEF COMPLAINT: Right shoulder pain. HISTORY OF PRESENT ILLNESS: This 68-year-old black female is seen today for recommendations regarding painful right shoulder, per request of Dr. Malone. The patient indicates she has had trouble with the right shoulder for around five years. She does indicate there was no injury event that started the pain. She does report onset has been gradual, pain is intermittent. She describes the pain as aching, mild to severe, comes and goes. She rates her pain at rest at 7/10, pain with activity is 5/10. Pain has progressed with activities of daily living. She does have night pain which wakes her up at night. Shoulder pain is worse with attempts at lifting, repetitive activity and weight lifting. She is right-hand dominant. She has tried using ice, nonsteroidal medications as well as TENS unit and [place]. She currently is not taking [place], taking tramadol that she received from Dr. Malone. She has also been taking Tylenol, which helps some. She has tried glucosamine as well as muscle relaxers, chiropractic acupuncture and physical therapy. She did physical therapy three months ago for two to three times a week for multiple weeks. She says it helped just a little, but not a lot. She does note some weakness in right shoulder/upper extremity. She also observes stiffness, swelling, crepitus. She does report some intermittent neck pain which radiates to her arm. X-RAYS: She has had plain film x-rays which are reviewed and these are noted to reveal good alignment of glenohumeral articular surfaces. There is some superior subluxation/narrowing appreciated at the humeroacromial space with some degenerative changes suggested at both AC joint and at the glenohumeral joint. There remains, however, a small to moderate joint space present at the glenohumeral articulation. No acute fractures or other abnormalities are observed. PAST MEDICAL HISTORY: The patient does report past medical history positive for deep venous thrombosis involving one of the right pelvic veins. She also reports history of a thyroid mass which she says was observed with ultrasound, assessed from time to time. She reports hypertension was diagnosed in 1977. She uses a cane to mobilize. PAST SURGICAL HISTORY: The patient indicates history of previous knee replacements on both sides, performed in [place] in the past, followed by Dr. Jf Roth there. Her surgical history is also positive for section 1977, left knee arthroscopic procedure [address] Steen in [place], left knee replacement in [address] Jf Roth, right knee replacement in [address] Jf Roth, and left wrist plate and screw was performed in February 2017 by an unknown [place] orthopedic doctor, followed up with Dr. Portillo pro in [place] following injury. ALLERGIES: The patient also reports that she has allergies to Celebrex, which causes hives. MEDICATIONS: She lists her current medications to include loratadine, omeprazole, fluticasone nasally, losartan, potassium, amlodipine, lovastatin, metoprolol, citalopram, tramadol 50 mg four times daily, cyclobenzaprine 10 mg three times daily, hydrochlorothiazide, ibuprofen, acetaminophen. SOCIAL HISTORY: Negative for cigarette use, positive for occasional alcohol beverage, not on a regular basis, however. The patient is single and reports she is retired, has had four pregnancies, four live births and one miscarriage. FAMILY HISTORY: Positive for asthma in Dad, an aunt and an uncle. Hypertension in mother, an aunt and an uncle. Obesity in mother. REVIEW OF SYSTEMS: The patient has review of systems which is positive for rashes, hoarseness, corrective lenses, chest pain sometimes with activity, shortness of breath, two-pillow orthopnea, chest pain with activity sometimes, leg swelling, shortness of breath with activity. She reports she cannot walk two blocks without shortness of breath. She reports having undergone a heart workup seven years ago with an echocardiogram and stress test two years ago, does not have results of those studies. She does report heartburn and constipation. Respiratory is negative for chronic cough, wheezing, coughing up blood, history of pneumonia. Genitourinary is negative for difficult urination, painful urination, blood in the urine or frequent urination or urgency or kidney stones. Psychiatric negative for suicidal thoughts or attempts. Negative for panic attacks, negative for bipolar, negative for schizophrenia. Neurologic is positive for anxiety/depression. Positive for dizziness. Positive for right side weakness in the shoulder area. The patient reports she is borderline hypercholesterol positive. She reports negative diabetes. PHYSICAL EXAMINATION: Vital signs are recorded revealing temperature of 97.7 degrees, blood pressure of 142/75, pulse of 67, respiratory rate of 18, height 5 feet 3 inches reported by patient, weight of 202 pounds with calculated BMI of 35.78. HEENT is normocephalic. Lungs are clear to percussion bilaterally. Cardiac: Regular rate and rhythm. Abdomen: Soft, nontender and obese. Extremity exam: The patient has limited active and passive range of motion of right shoulder. She actively can abduct to about 90 degrees at best, that with a little effort. Passively she gets to about 110 degrees. There is crepitus range of motion right shoulder. There is tenderness on the anterior and superior aspects of her right shoulder. She also reports some pain posteriorly. The patient has no gross instability appreciated of right shoulder. She can forward flex approximately 90 degrees with a little effort actively. Passively goes about 10 degrees further. The patient has internal rotation on the unaffected left upper extremity such as to reach the lower lumbar region on the right. She is unable to reach past the posterior aspect of her ilium at best. She does not reach even the sacral area using right shoulder. She has limited adduction, unable to adduct past midline on the right. There is good capillary refill distally both upper extremities with pulses present and symmetric radial aspect of wrist. IMPRESSION: 1. Degenerative joint disease of right shoulder with probable longstanding rotator cuff arthropathy. 2. History of deep venous thrombosis right pelvic region, not currently on anticoagulants. The patient reports the DVT was several years back and she has not been thought to require anticoagulants currently. 3. Hypertension. 4. Patient requiring tramadol currently per her notes. I note, however, that ER documentation indicates that this is Toradol rather than tramadol. She insists that she takes tramadol four times daily. 5. Intermittent chest pain with impaired mobility, unable to walk two blocks without shortness of breath and positive lower extremity swelling. 6. Borderline hypercholesterolemia reported. 7. The patient does report allergy to Celebrex which causes hives. RECOMMENDATIONS: Options are discussed with the patient. I sterilely injected the right glenohumeral joint with Depo-Medrol/Xylocaine/Marcaine. I did discuss with the patient that she likely will note some improvement. I did recommend weight reduction efforts for her and advised her that she certainly may be someone who would want to consider option of a reverse shoulder arthroplasty if nonsurgical options do not allow for improvement and she is able to obtain medical/cardiac clearance as appropriate for surgery. I did advise that reverse shoulder arthroplasty is a procedure which likely would alleviate discomfort, but likely would not allow her much if any improvement in function, given her limited current function with that shoulder anyway. We had a good discussion about that. At this point, we will see her back in three months for reassessment and she is going to continue with the current nonsurgical measures including the ibuprofen and tramadol. She insists she is not taking Toradol and I recommend she not take Toradol with ibuprofen in any event. Thank you for the opportunity to visit with this patient and help her with her painful shoulder. PROCEDURE NOTE: I sterilely injected the right glenohumeral joint using a 22- gauge needle with 40 mg of Depo-Medrol, 4 mL of 1% plain Xylocaine and 4 mL of 0.25% plain Marcaine. Anterior injection site was utilized. The patient tolerated the procedure well with no complications. Jung Montgomery MD (Dictated/not signed) /[employer] [id number] Job #[id number] [id number]
== END 2018-11-10 13:45 ==
LOC: ORHTO 13:14
PROVIDERS: ATTEND Orthopaedic Surgery
DX: M19.011 Primary osteoarthritis, right shoulder (principal); I10 Essential (primary) hypertension; R07.9 Chest pain, unspecified; R26.89 Other abnormalities of gait and mobility; R22.42 Localized swelling, mass and lump, left lower limb; Z86.718 Personal history of other venous thrombosis and embolism
CPT/HCPCS: 20610; 99203; J1030; J3490

== ENCOUNTER 2019-02-09 13:09 | Outpatient (CLI) | payer OTHER ==
[2018-10-30 22:21] VITALS: BP 128/71
--- NOTE | 2019-02-14 14:39 | OP Clinic Progress Note ---
PROGRESS NOTE: The patient is a 68-year-old black female who was seen for recheck today. She indicates that she has gotten some improvement from the glenohumeral joint injection, but it is not substantial at this point. She does have continuing symptoms, as outlined in her index assessment, orthopedic, by myself on 11/10/2018. Please reference that consultation report. PHYSICAL EXAMINATION: Physical exam today continues to reveal limited active and passive range of motion of the right shoulder, actively able to abduct to about 90 degrees at best that with a little effort, passively to about 110 degrees. There is crepitus on range of motion of the right shoulder with tenderness along the anterior and superior aspects of that right shoulder. She also reports some pain posteriorly. There is no gross instability appreciated right shoulder. The patient does have forward flexion to approximately 90 degrees with a little effort actively, passively goes about 10 degrees further. She has internal rotation on the unaffected left upper extremity such as to reach the lower lumbar region. On the right she is unable to reach past the posterior aspect of her ilium. She has limited adduction on the right, unable to adduct past midline on the right. There is good capillary refill distally both upper extremities with pulses present and symmetric at radial aspect of wrists. RECOMMENDATIONS: We had an extensive discussion about options at this point. She does want to undergo a reverse shoulder arthroplasty on the right if she is able to obtain medical/cardiac/anesthesia clearance for that procedure. I did advise her that the procedure is associated with various pros and cons and alternatives to treatment are discussed as well, including both surgical and nonsurgical options. I answered all of her questions to her voiced satisfaction. She is advised that complications include, but are not limited to, , amputation, life and/or limb threatening blood clots, myocardial infarction, stroke, infection on one or more occasions, need for removal or replacement of components, need for additional surgical procedures, failure to relieve pain, worse pain, worse debilitation, nerve damage, worse functional usage than was noted preoperatively. I also advised her that loosening of the components, fracturing around the components (periprosthetic fractures) can occur in some individuals. I advised her that my expectation is that she would have improvement in the level of discomfort she currently experiences in that right shoulder, but she is advised that absolutely no guarantees whatsoever have been, are, or can be provided regarding results of any type. She is advised that dislocation of the components can occur, as can loosening of components. She is advised that she is not going to have weightbearing through that upper extremity recommended after shoulder replacement as it is often poorly tolerated. Specifically, I advised her that she is not to expect any improvement in range of motion following surgery versus what she currently has, and that some individuals feel that they get pretty good pain relief, not great, but do not get much, if any, functional improvement and sometimes are worse in that parameter of assessment. She seems to have a very good understanding of what expectations can be, did advise her that shoulders do not generally work quite as well as knee replacements; as she has some experience with knee replacements, she related to what expectations are, reporting that the left knee hurts a little more than the right, even still after replacement. She, of course, does need to get general medical clearance which we will leave to Dr. Malone, her primary care provider, and also needs to get cardiology clearance given her history of cardiac issues, intermittent chest pain with impaired mobility and inability to walk two blocks without shortness of breath and presence of lower extremity swelling. She does have hypertension as well as history of deep venous thrombosis right pelvic region, not currently on anticoagulants. She is advised as well that her current BMI in the mid-30s does put her at elevated risk of readmission and complications approximately doubling that of an individual without a BMI in the mid-30s, but rather in the 18.5 to 30-range. She acknowledges. Order is placed for right reverse shoulder arthroplasty, pending general medical, cardiac, and anesthesia clearances. The patient acknowledges that actually performing the surgery does depend on clearances and availability of appropriate facility for the procedure with appropriate available specialty care, if indicated. Jung Montgomery MD/[employer] [id number] Job #[id number] cc: Seth Malone M.D. JESSICA
== END 2019-02-09 13:35 ==
LOC: ORHTO 13:09
PROVIDERS: ATTEND Orthopaedic Surgery
DX: Z00.00 Encounter for general adult medical examination without abnormal findings (principal)
CPT/HCPCS: 99212; G0463

== ENCOUNTER 2019-02-18 16:23 | Outpatient (CLI) | payer OTHER ==
[2018-10-30 22:21] VITALS: BP 128/71
[2019-02-18 17:08] LABS: HDL 47 mg/dL (>40); eGFR (Non-African) > 60
== END 2019-02-18 16:28 ==
LOC: LABRHC 16:23
PROVIDERS: ATTEND Family Medicine
DX: I10 Essential (primary) hypertension (principal); E78.00 Pure hypercholesterolemia, unspecified
CPT/HCPCS: 80053; 80061; 85027

== ENCOUNTER 2019-03-01 15:23 | Outpatient (CLI) | payer OTHER ==
[2018-10-30 22:21] VITALS: BP 128/71
--- NOTE | 2019-03-02 08:59 | Diagnostic Imaging Report ---
PATIENT MR#: [id number] PATIENT PATIENT NAME: MALINA RAO DATE OF : 1950 REFERRING PHYSICIAN: Naz Beltre EXAM DATE: 03/01/2019 ACCESSION NUMBER: [id number] EXAM DESCRIPTION: WRIST 3 VIEWS OR MORE CLINICAL HISTORY: RIGHT WRIST PAIN AND SWELLING COMPARISON: No study for comparison is available at the time of interpretation. TECHNIQUE: DX right wrist, 3 views Osseous structures: The osseous structures are normal with no evidence of fracture or dislocation. Th ere is no osseous lesion or periosteal reaction. 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 Soft tissues: There is a calcification of the triangular fibrocartilage. IMPRESSION: 1. 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 The intercarpal articulations may be better assessed with CT or MRI. 2. Degenerative calcification of the triangular fibrocartilage. Read by: Dr. Alireza Berry Transcribed by: Alireza Berry Transcribed Date: 03/02/2019 8:59:12 AM Electronically signed by: Dr. Alireza Berry Date signed: 03/02/2019 8:59:12 AM
== END 2019-03-01 15:33 ==
LOC: RAD 15:23
PROVIDERS: ATTEND Family Medicine
DX: M25.531 Pain in right wrist (principal)
CPT/HCPCS: 73110